=== PATIENT | female | born 1995 | race African-American/Black ===

== ENCOUNTER 2022-12-05 09:53 | Emergency (ER) | payer OTHER ==
[~2022-12-05] VITALS: Ht 170.2 cm; Wt 79.0 kg
[2022-12-05 10:17] VITALS: O2SAT 99
[2022-12-05 12:23] LABS: CLARITY URINE CLOUDY (CLEAR); COLOR URINE YELLOW (YELLOW); GLUCOSE URINE NEGATIVE (NEGATIVE); KETONES URINE NEGATIVE (NEGATIVE); LEUKOCYTE ESTERASE URINE NEGATIVE (NEGATIVE); NITRITE URINE NEGATIVE (NEGATIVE); OCCULT BLOOD URINE TRACE (NEGATIVE); PH URINE 5.5 (4.5-8.0); PROTEIN URINE NEGATIVE (NEGATIVE); SPECIFIC GRAVITY URINE 1.028 (1.005-1.030)
[2022-12-05] MEDS ORDERED: GUAI177L6 MT (12:42)
[2022-12-05] MEDS ORDERED: DOXY100T2 MT (12:42)
[2022-12-05] MEDS ORDERED: CEFTRIAXONE SODIUM 500 MG/VIAL IM ONE (12:45)
[2022-12-05 13:10] VITALS: BP 135/87; PULSE 83; RESP 19; TEMP 98.4
[2022-12-05 13:37] LABS: MUCUS URINE TRACE /lpf (< = 2+); SQUAMOUS EPITHELIAL CELL URINE 3+ /lpf (RARE/1+)
[2022-12-05 13:38] LABS: BACTERIA URINE 2+; RBC URINE 0-2 /hpf (0-2)
[2022-12-05 13:39] LABS: WBC URINE 0-2 /hpf (0-2)
[2022-12-07 07:08] LABS: CHLAMYDIA TRACHOMATIS NAA Negative (Negative); NEISSERIA GONORRHOEAE NAA Negative (Negative)
== END 2022-12-05 13:11 | disposition home or self-care (01) ==
LOC: ER 09:53
DX: J06.9 Acute upper respiratory infection, unspecified (principal); N89.8 Other specified noninflammatory disorders of vagina
CPT/HCPCS: 87491; 87591; 81003; 81025; 87210; 71045; 96372; 99284; J0696; Z7610 ×2